=== PATIENT | female | born 1960 ===

== ENCOUNTER → 2018-07-04 | Outpatient (CLI) | payer OTHER ==
[~2018-07-04] MED LIST: CITA-141 PO; DIPH0.5D12 IM; FEXO180T78 PO; LORA-630 PO
[2018-07-04 13:43] LABS: PLATELET COUNT, AUTOMATED 260 K/uL (150-450)
[2018-07-04 14:03] LABS: LDL CHOLESTEROL 63 mg/dl
== END ==
LOC: LAB 13:21
PROVIDERS: ATTEND Emergency Medicine
DX: F32.9 Major depressive disorder, single episode, unspecified (principal); R20.8 Other disturbances of skin sensation
CPT/HCPCS: 36415; 82040; 82247; 82310; 82374; 82435; 82465; 82565; 82607; 82947; 83718; 84075; 84132; 84155; 84295; 84443; 84450; 84460; 84478; 84520; 85025

== ENCOUNTER → 2018-07-12 | Outpatient (CLI) | payer OTHER ==
[~2018-07-12] MED LIST changes: +CIPR-345 PO
== END ==
LOC: LAB 07:18
PROVIDERS: ATTEND Emergency Medicine
DX: R30.0 Dysuria (principal)
CPT/HCPCS: 81001; 87077; 87088; 87186

== ENCOUNTER → 2018-10-23 | Outpatient (CLI) | payer BC ==
[~2018-10-23] MED LIST changes: +NITR-1 PO
== END ==
LOC: LAB 15:10
PROVIDERS: ATTEND Emergency Medicine
DX: R35.0 Frequency of micturition (principal); R82.998 Other abnormal findings in urine
CPT/HCPCS: 81001; 87088